=== PATIENT | male | born 1960 | race Caucasian/White ===

== ENCOUNTER 2016-02-13 08:38 | Emergency (ER) | payer OTHER ==
[~2016-02-13] VITALS: Ht 170.2 cm; Wt 71.0 kg
[~2016-02-13 08:38] MED LIST: Z.0.NO CURRENT MEDS
[2016-02-13 08:41] VITALS: BP 204/92; PULSE 90; RESP 16; TEMP 98; O2SAT 99
[2016-02-13 08:46] VITALS: BP 197/105; PULSE 91; RESP 16; TEMP 97.6; O2SAT 100
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
[2016-02-13] MEDS ORDERED: KETOROLAC TROMETHAMINE 30 MG/ML (IVP) VIAL ONE (08:58)
[2016-02-13] MEDS ORDERED: KETOROLAC TROMETHAMINE 60 MG/2 ML (IM) VIAL IM ONE (09:00)
--- NOTE | 2016-02-13 09:33 | RADRPT ---
EXAM DATE/TIME: 02/13/2016 09:11 [place] COMPARISON: No previous studies available for comparison. INDICATIONS : Right posterior rib pain, fell MEDICAL HISTORY : None. SURGICAL HISTORY : None. ENCOUNTER: Initial ACUITY: 1 week PAIN SCORE: 10/10 LOCATION: Right Posterior ribs FINDINGS: Nipple shadows are present bilaterally. Old rib fractures is seen on the right. There is no subacut e rib fracture. There is no pneumothorax. CONCLUSION: Negative for acute rib fracture.. Caden Fritz MD FACR on February 13, 2016 at 9:31 Board Certified Radiologist. This report was verified electronically.
[2016-02-13] MEDS ORDERED: ULTR50TA5 PO ×2 (10:03→10:10)
== END 2016-02-13 10:42 | disposition home or self-care (01) ==
LOC: NEPC 08:38
DX: S22.31XA Fracture of one rib, right side, initial encounter for closed fracture (principal); F17.210 Nicotine dependence, cigarettes, uncomplicated; W19.XXXA Unspecified fall, initial encounter
CPT/HCPCS: 71101; 96372; 99283; J1885